=== PATIENT | female | born 1960 | race Caucasian/White ===

== ENCOUNTER 2016-04-13 20:10 | Emergency (ER) | payer BC ==
--- NOTE | ~2016-04-13 | EKG ---
PATIENT: GUERO DENTON UNIT #: [id number] Ventricular Rate: 70 BPM Atrial Rate: 70 BPM P-R Interval: 164 ms QRS Duration: 88 ms Q-T Interval: 428 ms QTC Calculation(Bezet): 462 ms P Alba: 22 degrees Calculated R Alba: 33 degrees Calculated T Alba: 48 degrees Diagnosis Line: Normal sinus rhythm Diagnosis Line: Nonspecific T wave abnormality Diagnosis Line: Abnormal ECG Diagnosis Line: When compared with ECG of 20-OCT-2014 13:02, Diagnosis Line: Nonspecific T wave abnormality now evident in Diagnosis Line: Anterior leads Diagnosis Line: Confirmed by JOHN DOMINGUEZ MD ([id number]) on Diagnosis Line: 04/14/2016 10:50:27 PM INTERPRETING MD: MELANIE
--- NOTE | ~2016-04-13 | CT16 ---
[facility] A Service of [facility] & [facility] RADIOLOGY TEXT RESULTS PATIENT: GUERO DENTON LOCATION: [facility] : 56 UNIT #: [id number] AGE: [address]: Pretty Pederson MD SEX: F ORDER DR: [id number] [facility] [address] [place], [place] [address] [id number] E MR#: [id number] Acc #: [id number] NAME: GUERO DENTON : 1960 SEX: F STUDY DATE/TIME: 04/13/2016 22:28 UNIT: [facility] ROOM: STUDY DESCRIPTION: CT Angio Chest for PE Attending Physician: Pretty Pederson M.D. Ordering Physician: Pretty Pederson M.D. Primary Care Physician: Eloy Bruno M.D. MEDICAL IMAGING REPORT This report is preliminary unless electronic signature is present EXAM CT angiography of the chest with IV contrast, PE protocol COMPARISON April 26, 2013. INDICATION A 55-year-old female with dyspnea for 4 days as well as elevated D-dimer. Syncope and nausea. TECHNIQUE This CT exam was performed with one or more of the following radiation dose reduction techniques: automatic exposure control, adjustment of mA and/or kV according to patient size, and iterative reconstruction. FINDINGS Axial CT imaging of the chest was performed during pulmonary arterial phase of postcontrast imaging after administration of 80 mL Isovue-370 intravenously. Coronal MIPs and sagittal reformats were constructed. Lower cervical anterior fusion hardware is incompletely visualized. No evidence of complication seen on this exam. No acute fractures or suspicious osseous lesions. Stable nonspecific 8 mm short axis nodule on the anterior mediastinum, perhaps reflecting residual thymic tissue or prominent lymph node. Stable AP window/left paratracheal lymph node measuring up to 8 mm short axis. Stable prominent lymph nodes versus peribronchial thickening in the hilar regions, measuring up to 7 mm left and 8 mm on the right superiorly. On the left, this is associated with some calcified left hilar lymph nodes. In the inferior right hilar area, this measures up to approximately 1.4 cm, increased from comparison 2013. Top normal heart size, without pericardial effusion. Normal caliber of the thoracic aorta with patency of its main branches. Artifact noted in the main pulmonary artery. No evidence of pulmonary embolus. Airways are STS. [facility] A Service of [facility] & [facility] RADIOLOGY TEXT RESULTS PATIENT: GUERO DENTON LOCATION: [facility] : 56 UNIT #: [id number] AGE: [address]: Pretty Pederson MD SEX: F ORDER DR: widely patent. There are new patchy ground-glass bronchovascular and bronchoalveolar distribution opacities throughout the lungs, most prominent in the right upper lobe and bilateral lower lobes. There is no pleural effusion. No pneumothorax. Compressive atelectasis is noted medially in the lingula and right middle lobe adjacent to the heart. No acute findings in the imaged upper abdomen. IMPRESSION 1. No evidence of pulmonary embolus. New ground-glass opacities scattered throughout the lungs in a bronchovascular bronchoalveolar distribution. This most likely represents an infectious process. Imaging followup is recommend to ensure resolution. There are stable mediastinal and hilar lymph nodes bilaterally, but there has been increase in size of lymph nodes in the right inferior hilar location, consistent with mild adenopathy measuring up to 1.4 cm. Consider follow up imaging to ensure resolution. This is thought to be reactive to ongoing infectious process in the lungs. One could consider hypersensitivity pneumonitis for the findings in the lungs. Clinical correlation recommended. 2. Mild cardiomegaly. Dictated by... Con Solis M.D. THIS IS AN ELECTRONICALLY VERIFIED REPORT Con Solis M.D. at 04/17/2016 7:55 AM AUGUSTO/jazmin TD: 04/14/2016 02:41 JOB #: [id number] MEDICAL IMAGING REPORT COPY
--- NOTE | ~2016-04-13 | CR72 ---
[facility] A Service of [facility] RADIOLOGY TEXT RESULTS PATIENT: GUERO DENTON LOCATION: [facility] : 56 UNIT #: [id number] AGE: [address]: Pretty Pederson MD SEX: F ORDER DR: [id number] [address] [address] [id number] E MR#: [id number] Acc #: [id number] NAME: GUERO DENTON : 1960 SEX: F STUDY DATE/TIME: 04/13/2016 19:57 UNIT: [facility] ROOM: STUDY DESCRIPTION: CR Chest Single View Portable Attending Physician: Pretty Pederson M.D. Ordering Physician: Pretty Pederson M.D. Primary Care Physician: Eloy Bruno M.D. MEDICAL IMAGING REPORT This report is preliminary unless electronic signature is present EXAM Portable chest. DATE OF EXAM 04/13/2016 INDICATIONS Cough and chills for the past week. PROCEDURE Frontal view chest. COMPARISON 04/09/2016 FINDINGS Heart size upper limits of normal. No dense consolidation. No pleural fluid or pneumothorax. IMPRESSION No active process. Dictated by... Jaylon Leblanc M.D. THIS IS AN ELECTRONICALLY VERIFIED REPORT Jaylon Leblanc M.D. at 04/15/2016 7:00 AM EEHari/anny TD: 04/13/2016 23:06 JOB #: [id number] [facility] A Service of [facility] RADIOLOGY TEXT RESULTS PATIENT: GUERO DENTON LOCATION: [facility] : 56 UNIT #: [id number] AGE: [address]: Pretty Pederson MD SEX: F ORDER DR: MEDICAL IMAGING REPORT COPY
[2016-04-13 20:09] LABS: BASOPHIL% 0.5 % (0-2.5); EOSINOPHIL# 0.1 X10e3 (0-0.7); EOSINOPHIL% 0.8 % (0.0-7.0); HEMATOCRIT 46.5 % (35.0-45.0); HEMOGLOBIN 15.3 gm/dL (12.0-16.0); LYMPHOCYTE# 2.4 X10e3 (1.0-3.5); LYMPHOCYTE% 26.8 % (17.0-45.0); MEAN CELL VOLUME 89.3 FL (83-96); MEAN CORPUSCULAR HEMOGLOBIN 29.3 PG (28-34); MEAN CORPUSCULAR HGB CONC 32.8 g/dL (30-36); MEAN PLATELET VOLUME 8.8 FL (6.5-11.5); MONOCYTE# 0.6 X10e3 (0-1.0); MONOCYTE% 6.8 % (3.0-12.0); NEUTROPHIL# 5.7 X10e3 (1.5-7.1); NEUTROPHIL% 65.1 % (40-75); PLATELET COUNT 172 X10e3 (140-420); RED BLOOD COUNT 5.21 X10e (3.90-5.30); RED CELL DISTRIBUTION WIDTH 14.6 % (11.0-15.5); WHITE BLOOD COUNT 8.8 X10e3 (4.0-10.5)
[~2016-04-13 20:10] MED LIST: ALBUTEROL17 GM INH; CELEXA PO; CELEXA20 MG PO; CITALOPRAM HBR40 MG PO; COMBIVENT U/D3 M2 INH; DICLOFENAC PO; HYDROMET SYRUP480 ML PO; LEVAQUIN750 MG PO; OMEPRAZOLE40 M1 PO; PREDNISONE PO; PREMPHASE 0.621 EACH PO; PREMPHASE PO; PROAIR HFA8.5 GM IH; SYMBICORT 160/4.6 G1 IH; VIBRAMYCIN100 M1 PO; ZITHROMAX PO
[2016-04-13 20:17] LABS: DIFF IND NO
[2016-04-13 20:46] LABS: POC - CKMB <1.0 ng/mL (0.0-7.9); POC - TROPONIN <0.05 ng/mL (<=0.05)
[2016-04-13 21:17] LABS: BLOOD UREA NITROGEN 27 mg/dL (9-23); CALCIUM SERUM 8.4 mg/dL (8.4-10.2); CARBON DIOXIDE 25 mmol/L (22-31); CHLORIDE 112 mmol/L (100-111); CREATININE SERUM 0.6 mg/dL (0.6-1.4); GLOM FILT RATE Estimated ABOVE60 mL/min (>60); GLUCOSE FASTING 126 mg/dL (70-110); POTASSIUM 3.6 mmol/L (3.5-5.1); SODIUM 143 mmol/L (135-145)
[2016-04-14 00:19] LABS: INFLUENZA A NEG (NEG); INFLUENZA B NEG (NEG)
== END 2016-04-14 00:45 | disposition home or self-care (01) ==
LOC: CED 20:10
PROVIDERS: Student in an Organized Health Care Education/Training Program
DX: J18.9 Pneumonia, unspecified organism (principal); J44.9 Chronic obstructive pulmonary disease, unspecified; F17.210 Nicotine dependence, cigarettes, uncomplicated; Z79.899 Other long term (current) drug therapy
CPT/HCPCS: 36415; 71010; 71275; 80048; 82553; 84484; 85025; 85379; 87804; 93005; 96361; 96374; 96375; 99284; J2405; J2930; Q9967

== ENCOUNTER → 2016-05-27 | Outpatient (CLI) | payer BC ==
--- NOTE | ~2016-05-27 | CT57 ---
[facility] A Service of [facility] RADIOLOGY TEXT RESULTS PATIENT: GUERO DENTON LOCATION: [facility] : 56 UNIT #: [id number] AGE: [address]: Eloy Bruno MD SEX: F ORDER DR: [id number] [place] [id number] O MR#: [id number] Acc #: [id number] NAME: GUERO DENTON : 1960 SEX: F STUDY DATE/TIME: 05/27/2016 10:40 UNIT: [facility] ROOM: STUDY DESCRIPTION: CT Chest Wo Cont Attending Physician: Eloy Bruno M.D. Ordering Physician: Eloy Bruno M.D. Primary Care Physician: Eloy Bruno M.D. MEDICAL IMAGING REPORT This report is preliminary unless electronic signature is present. EXAM CT of the chest without contrast INDICATIONS Abnormal chest CT which was performed 04/13/2016. This did show dense ground-glass infiltrates throughout both lungs as well as some right hilar adenopathy. TECHNIQUE Axial CT images were obtained from the thoracic inlet through the dome of the diaphragm. No intravenous contrast material was administered. This CT exam was performed with one or more of the following radiation dose reduction techniques: automatic exposure control, adjustment of mA and/or kV according to patient size, and iterative reconstruction. FINDINGS Previously identified ground-glass infiltrates throughout both lungs have resolved. No new infiltrates are seen. The thyroid gland, trachea and esophagus appear unremarkable. There is no pleural or pericardial effusion. Thoracic aorta measures within normal size limits. I do not see any definite hilar or mediastinal adenopathy, although this is difficult to fully assess in the absence of intravenous contrast material. I think there is probably some geographic hepatic steatosis. No other acute abnormalities are seen within the upper abdomen. Review of bony windows does not demonstrate any aggressive osseous abnormalities. IMPRESSION 1. Previously identified ground-glass infiltrates throughout both lungs have resolved. No new infiltrates are seen. 2. Mediastinal and hilar lymph nodes do not really appear pathologically enlarged on today's study. Full assessment is limited [facility] the [facility] of [facility] RADIOLOGY TEXT RESULTS PATIENT: GUERO DENTON LOCATION: [facility] : 56 UNIT #: [id number] AGE: [address]: Eloy Bruno MD SEX: F ORDER DR: intravenous contrast material. Dictated by... Alison Damico M.D. THIS IS AN ELECTRONICALLY VERIFIED REPORT Alison Damico M.D. at 05/28/2016 9:09 AM AFF/pcl TD: 05/27/2016 21:20 JOB #: [id number] MEDICAL IMAGING REPORT Page 1 of 1
== END | disposition home or self-care (01) ==
LOC: SCT 10:20
DX: R93.8 Abnormal findings on diagnostic imaging of other specified body structures (principal)
CPT/HCPCS: 71250